=== PATIENT | female | born 1955 | race African-American/Black ===

== ENCOUNTER 2017-07-06 07:31 | Day surgery (SDC) | payer OTHER ==
[2017-06-28 12:43] VITALS: BMI 32.2
[2017-07-06] MEDS ORDERED: oxyCODONE HCL 5 MG TABLET PO PRN ×4 (11:51→15:29)
[2017-07-06] MEDS ORDERED: ONDANSETRON 4 MG/2 ML VIAL IVPUSH PRN (11:51)
[2017-07-06] MEDS ORDERED: MIDAZOLAM HCL 2 MG/2 ML SINGLE DOSE VIAL ONE ×2 (11:55→12:41)
[2017-07-06] MEDS ORDERED: DEXAMETHASONE SOD PHOSPHATE/PF 10 MG/ML SDV ONE (11:55)
[2017-07-06] MEDS ORDERED: LACTATED RINGERS SOLUTION 1,000 ML IV SCH (12:00)
[2017-07-06] MEDS ORDERED: LIDOCAINE HCL/PF 2% SDV 5ML VIAL ONE ×2 (12:43→12:47)
[2017-07-06] MEDS ORDERED: DEXAMETHASONE SOD PHOSPHATE 4 MG/1 ML VIAL ONE ×2 (12:47→13:23)
[2017-07-06] MEDS ORDERED: ONDANSETRON 4 MG/2 ML VIAL ONE ×2 (12:47→13:23)
[2017-07-06] MEDS ORDERED: KETOROLAC TROMETHAMINE 30 MG/1 ML VIAL ONE ×2 (12:47→13:23)
[2017-07-06] MEDS ORDERED: PROPOFOL 20 ML ONE ×2 (13:12→13:41)
[2017-07-06] MEDS ORDERED: ceFAZolin SODIUM 1 GM VIAL ONE (13:25)
[2017-07-06] MEDS ORDERED: SODIUM CHLORIDE 0.9% P/F 10 ML VIAL IJ ONE (13:25)
[2017-07-06] MEDS ORDERED: METOPROLOL TARTRATE 5 MG/5 ML VIAL ONE (13:32)
[2017-07-06] MEDS ORDERED: ACETAMINOPHEN 325 MG TABLET (FP) PO PRN ×2 (15:28→15:29)
--- NOTE | 2017-07-06 20:31 | OP ---
DATE OF OPERATION: 07/06/2017 PREOPERATIVE DIAGNOSIS: Impingement, right shoulder rotator cuff tear. POSTOPERATIVE DIAGNOSIS: Impingement from the lateral clavicle, including the articular surface, impingement from the coracoacromial ligament, impingement from the lateral acromion, joint debris and hypertrophic synovium within the joint, hypertrophic bursal tissue with tearing of the rotator cuff and tearing of the glenoid labrum. PROCEDURE PERFORMED: Shoulder decompression of subacromial space with partial acromioplasty with release and resection of coracoacromial ligament, lysis and resection of adhesions, distal claviculectomy including distal articular surface , partial synovectomy with extensive debridement of inflamed bursal tissue, joint debridement, and debridement of partial-thickness rotator cuff tear with partial glenoid labral resection. SURGEON: Jae Whiteside MD CUSTOMER STRATEGY MANAGER: ANISH Salter ANESTHESIA: Scot Buchanan MD. Regional anesthesia was performed. PROCEDURE: The procedure consisted of the patient being brought into the operating room and gently transferred from the stretcher to the OR table with all bony prominences well padded. The right shoulder was prepared and draped in a sterile fashion. The patient was given intravenous antibiotics and copious irrigation throughout the procedure to minimize the risk for infection. A complete risks and benefits discussion was conducted. An appropriate timeout was conducted with a timeout discussion following sterile preparation and draping of the right shoulder. Gentle traction using a traction device, approximately 8 pounds, was applied across the shoulder joint. Anterior, posterior, and lateral portals were used. It should be noted that prior to the surgical initiation, the patient met, was placed in the [id number] lateral decubitus position with all bony prominences well padded. Great care was taken to protect the face as well as a pillow below the legs and a pillow between the legs to protect the peroneal nerves and the neurovascular structures to the legs. Compressive stockings and Venodynes were used to provide protection for the leg. Following sterile preparation and draping of the right shoulder, anterior and posterolateral portals were used to introduce the arthroscope and arthroscopic instruments. The glenohumeral joint was evaluated. There was noted to be inflamed synovium and hence, a partial synovectomy was performed. Anterior and posterior recesses without loose body. Middle glenohumeral ligament was found to be intact. Biceps tendon was found to be intact. There was noted to be tearing of the glenoid labrum, and partial glenoid labral resection was performed. Rotator cuff on the articular side was found to have a tear which was probed and found to be partial thickness, and this was debrided using shaver and radiofrequency wand. There was noted to be joint debris in the glenohumeral joint and joint debridement was performed. Our attention was then turned to the subacromial space. Inflamed bursal tissue was identified and an extensive partial bursectomy was performed. The inferior acromion was noted to have an edge of bone impinging upon the rotator cuff and this was debrided. A high-speed cj and shaver were used to resect a wedge of bone taken anteriorly, then posteriorly. The coracoacromial ligament was also creating impingement and this was released and resected. The lateral clavicle, including the articular portion, was also creating impingement. This was debrided and a high- speed cj and shaver were used to resect the lateral clavicle, including the articular portion creating impingement. The shoulder joint was then copiously irrigated with sterile saline irrigant. The wounds were closed with 4-0 undyed Vicryl. We applied Steri-Strips, Xeroform, 4 x 4's, combined Elastoplast and shoulder immobilizer. The patient was then gently awakened from anesthesia without incident and transferred from the operating room to the recovery room in satisfactory condition. There were no intraoperative complications. JAE WHITESIDE M.D. [id number] MTDD
[2017-07-07 06:36] VITALS: BP 139/70; PULSE 84; TEMP 97.5
--- NOTE | 2017-07-11 10:21 | PATH ---
Surgical Pathology Report Patient Name: ALVINO MAJOR [facility]. Rec. #: [id number] /Age/Gender: 1955 (Age: 61) / F Account: [id number] Location: [facility] Taken: 07/06/2017 Received: 07/09/2017 Reported: 07/11/2017 Physicians: Srinivas Whiteside M.D. Specimen(s) Received RIGHT SHOULDER SHAVINGS Clinical History Right shoulder rotator cuff tear Final Diagnosis SHOULDER SHAVINGS, RIGHT, ARTHROSCOPY: FRAGMENTS OF BENIGN CARTILAGE, DENSE FIBROCONNECTIVE TISSUE, ADIPOSE TISSUE, AND SKELETAL MUSCLE. Electronically Signed Marcia Kapadia M.D. Gross Description Received in formalin labeled "right shoulder shavings," is a 1.2 x 0.7 x 0.2 cm aggregate of cortez-yellow soft tissue fragments. The formalin is filtered and the specimen is entirely submitted in one cassette. 07/09/201707/09/2017
== END 2017-07-07 10:05 | disposition home or self-care (01) ==
LOC: FASU 07:31 → FM/S 15:29 → FASU 07-07 10:05
PROVIDERS: ATTEND Orthopaedic Surgery
PROC: 0RNJ4ZZ Release Right Shoulder Joint, Percutaneous Endoscopic Approach (ICD-10-PCS; 2017-07-06)
PROC: 0PB94ZZ Excision of Right Clavicle, Percutaneous Endoscopic Approach (ICD-10-PCS; 2017-07-06)
PROC: 0RBJ4ZZ Excision of Right Shoulder Joint, Percutaneous Endoscopic Approach (ICD-10-PCS; 2017-07-06)
PROC: 0LQ14ZZ Repair Right Shoulder Tendon, Percutaneous Endoscopic Approach (ICD-10-PCS; principal; 2017-07-06 13:08)
DX: M75.121 Complete rotator cuff tear or rupture of right shoulder, not specified as traumatic (principal); M75.41 Impingement syndrome of right shoulder; M75.01 Adhesive capsulitis of right shoulder; M67.211 Synovial hypertrophy, not elsewhere classified, right shoulder; M24.111 Other articular cartilage disorders, right shoulder
CPT/HCPCS: 82962; 88304-TC; 94760

== ENCOUNTER 2018-02-25 13:56 | Emergency (ER) | payer OTHER, MEDICARE ==
[2018-02-25 14:15] VITALS: BP 153/74; PULSE 85; TEMP 98; BMI 30.8
--- NOTE | 2018-02-25 14:42 | PDOC ---
History of Present Illness - General Chief Complaint: Injury Stated Complaint: FALL Time Seen by Provider: 02/25/18 14:22 - History of Present Illness Initial Comments: 02/25/18 14:40 62-year-old lady without comorbidities presents for evaluation after fall. She states she was coming out of a store tripped and fell on both breasts. She complains of bilateral wrist pain and right ankle pain. She did not hit her head. There is been no post injury loss of consciousness nausea vomiting or headache no visual changes. Past History - Past Medical History Allergies/Adverse Reactions: Allergies Allergy/AdvReac Type Severity Reaction Status Date / Time No Known Allergies Allergy Verified 02/25/18 14:23 Home Medications: Ambulatory Orders Zolpidem Tartrate [Ambien] 10 mg PO HS 06/28/17 Amlodipine Besylate 10 mg PO DAILY 02/25/18 Atorvastatin Ca [Lipitor] 20 mg NR DAILY 02/25/18 Metformin HCl [Glucophage] 1,000 mg PO BID 02/25/18 Anemia: Yes Asthma: No Cancer: No Cardiac Disorders: No CVA: No COPD: No CHF: No Dementia: No Diabetes: Yes GI Disorders: No Disorders: No HTN: Yes Hypercholesterolemia: No Liver Disease: No Seizures: No Thyroid Disease: No - Surgical History Abdominal Surgery: No Appendectomy: No Cardiac Surgery: No Cholecystectomy: No Lung Surgery: No Neurologic Surgery: No Orthopedic Surgery: Yes (R shoulder arthroscopy) - Immunization History Immunization Up to Date: No - Suicide/Smoking/Psychosocial Hx Smoking History: Never smoked Have you smoked in the past 12 months: No Information on smoking cessation initiated: No Hx Alcohol Use: No Drug/Substance Use Hx: No Substance Use Type: Prescribed Hx Substance Use Treatment: No Review of Systems - Review of Systems Musculoskeletal: Yes: See HPI, Joint Pain *Physical Exam - Vital Signs Last Vital Signs Temp Pulse Resp BP Pulse Ox 98.0 F 85 18 153/74 100 02/25/18 14:12 02/25/18 14:12 02/25/18 14:12 02/25/18 14:12 02/25/18 14:12 - Physical Exam Comments: 02/25/18 14:41 Bilateral wrist skin color and temperature are normal. There is no swelling. There is a small superficial abrasion on the left palm. There is full range of motion of wrist both right and left in all planes. Minimal tenderness about the base of the thumbs. No gross sensorimotor deficit she is neurovascularly intact. Right ankle skin color and temperature are normal there is no swelling. There is no tenderness about the knee proximal fibula or along its distal coarse. No tenderness about the medial lateral malleolus base of the fifth metatarsal or navicular. Negligible tenderness about the ATFL. No gross sensorimotor deficits full range of motion she is neurovascularly intact no evidence of instability. Moderate Sedation - Procedure Monitoring Vital Signs: Procedure Monitoring Vital Signs Temperature 98.0 F 02/25/18 14:12 Pulse Rate 85 02/25/18 14:12 Respiratory Rate 18 02/25/18 14:12 Blood Pressure 153/74 02/25/18 14:12 O2 Sat by Pulse Oximetry (%) 100 02/25/18 14:12 ED Treatment Course - RADIOLOGY Radiology Studies Ordered: Category Date Time Status WRIST W/HAND-LEFT* [RAD] Stat Radiology 02/25/18 14:36 Ordered WRIST W/HAND-RIGHT* [RAD] Stat Radiology 02/25/18 14:36 Ordered Medical Decision Making - Medical Decision Making 02/25/18 15:10 X-ray show no evidence of fracture trauma or destructive process to does appear to be radial opacity at the palmar surface of the left hand. *DC/Admit/Observation/Transfer Diagnosis at time of Disposition: Sprain of wrist, left, Right wrist sprain, Right ankle sprain - Discharge Dispostion Disposition: HOME Condition at time of disposition: Stable - Referrals Referrals: Janeth Galeana MD [Primary Care Provider] - Bossman Combs MD [Staff Physician] - Ramon Lam MD [Staff Physician] - - Patient Instructions Printed Discharge Instructions: Ankle Sprain, DI for Ankle Sprain, Wrist Sprain , DI for Wrist Sprain Additional Instructions: He may weight-bear as tolerated with the use of the Aircast on your right ankle. He may remove it for hygiene and sleep. Please wear the wrist splint while you're out of the house and he may remove them for gentle range of motion sleep hygiene as well. Return to the emergency room should have any further issues follow-up with hand surgery as well as orthopedic surgery for further evaluation and treatment options. Orthopedic surgery fear ankle and hand surgery for your wrist sprains. There is an indication on your x-ray today of a foreign body in your left palm. I will have you follow-up with hand surgery for further evaluation and treatment of this as well. - Post Discharge Activity
== END 2018-02-25 15:51 | disposition home or self-care (01) ==
LOC: JERFT 13:56
PROC: 2W3DX1Z Immobilization of Left Lower Arm using Splint (ICD-10-PCS; principal; 2018-02-25)
PROC: 2W3QX1Z Immobilization of Right Lower Leg using Splint (ICD-10-PCS; 2018-02-25)
DX: S63.501A Unspecified sprain of right wrist, initial encounter (principal); S63.502A Unspecified sprain of left wrist, initial encounter; S93.401A Sprain of unspecified ligament of right ankle, initial encounter; W01.0XXA Fall on same level from slipping, tripping and stumbling without subsequent striking against object, initial encounter; Y93.89 Activity, other specified; Y92.512 Supermarket, store or market as the place of occurrence of the external cause; Y99.8 Other external cause status
CPT/HCPCS: 73110-TC-LR-FY; 73110-TC-RT-FY; 73130-TC-LT-FY; 73130-TC-RT-FY; 99281-25

== ENCOUNTER 2020-06-23 06:48 | Day surgery (SDC) | payer OTHER, MEDICARE ==
[2020-06-23] MEDS ORDERED: FERRIC CARBOXYMALTOSE 750 MG in SODIUM CHLORIDE 250 ML IVPB ONE (11:51)
[2020-06-23 17:57] VITALS: PULSE 87; TEMP 98
[2020-06-23 17:59] VITALS: BP 123/54
== END 2020-06-23 13:35 | disposition home or self-care (01) ==
LOC: JONCNONCHE 06:48
PROVIDERS: ATTEND Internal Medicine Hematology & Oncology
PROC: 3E033GC Introduction of Other Therapeutic Substance into Peripheral Vein, Percutaneous Approach (ICD-10-PCS; principal; 2020-06-23)
DX: D50.9 Iron deficiency anemia, unspecified (principal)
CPT/HCPCS: 96365; J1439

== ENCOUNTER 2020-07-01 07:28 | Day surgery (SDC) | payer OTHER, MEDICARE ==
[2020-07-01] MEDS ORDERED: FERRIC CARBOXYMALTOSE 750 MG in SODIUM CHLORIDE 250 ML IVPB ONE (12:00)
[2020-07-01 15:45] VITALS: TEMP 98.3
[2020-07-01 15:46] VITALS: BP 111/56; PULSE 94
== END 2020-07-01 14:45 | disposition home or self-care (01) ==
LOC: JONCCHEMO 07:28
PROVIDERS: ATTEND Internal Medicine Hematology & Oncology
PROC: 3E033GC Introduction of Other Therapeutic Substance into Peripheral Vein, Percutaneous Approach (ICD-10-PCS; principal; 2020-07-01)
DX: D50.9 Iron deficiency anemia, unspecified (principal)
CPT/HCPCS: 96365; J1439

== ENCOUNTER 2020-10-28 15:33 | Emergency (ER) | payer OTHER, MEDICARE ==
[2020-10-28 16:11] VITALS: TEMP 98.8; BMI 32.1
[2020-10-28 18:00] LABS: BASO % 0.4 % (0-2.0); HEMATOCRIT 33.4 % (32.4-45.2); HEMOGLOBIN 11.4 GM/dL (10.7-15.3); MCH 30.2 pg (25.7-33.7); MCHC 34.3 g/dl (32.0-36.0); MEAN CELL VOLUME 88.2 fl (80-96); MEAN PLT VOLUME 7.1 fl (7.5-11.1); MONO % 2.9 % (3.8-10.2); NEUT % 91.7 % (42.8-82.8); PLATELET COUNT 353 10^3/uL (134-434); RBC 3.79 M/mm3 (3.60-5.2); RDW 14.2 % (11.6-15.6); WHITE BLOOD COUNT 11.4 K/mm3 (4.0-10.0)
[2020-10-28 18:15] LABS: CALCIUM 9.1 mg/dL (8.5-10.1)
[2020-10-28 18:16] LABS: ALBUMIN 3.8 g/dl (3.4-5.0); BLOOD UREA NITROGEN 21.3 mg/dL (7-18)
[2020-10-28 18:18] LABS: CREATININE 1.9 mg/dL (0.55-1.3)
[2020-10-28 18:20] LABS: BILIRUBIN,TOTAL 0.4 mg/dL (0.2-1); TOT PROT 8.3 g/dl (6.4-8.2)
[2020-10-28 19:08] LABS: ANISOCYTOSIS 0; MACROCYTOSIS 0; PLATELET ESTIMATE NORMAL
[2020-10-28 19:30] VITALS: BP 137/77; PULSE 90
== END 2020-10-28 19:00 | disposition home or self-care (01) ==
LOC: JER 15:33
DX: R14.1 Gas pain (principal)
CPT/HCPCS: 36415; 74019-TC-FY; 80053; 83690; 85025; 99284-25

== ENCOUNTER → 2021-01-19 | Day surgery (SDC) | payer OTHER, MEDICARE ==
[~2021-01-19] MED LIST: FERRIC CARBOXYMALTOSE 750 MG in SODIUM CHLORIDE 250 ML IVPB ONE
[2021-01-19 10:52] LABS: BASO % 0.7 % (0-2.0); EOS % 1.8 % (0-4.5); HEMATOCRIT 32.2 % (32.4-45.2); HEMOGLOBIN 11.1 GM/dL (10.7-15.3); LYMPH % 29.9 % (8-40); MCH 29.6 pg (25.7-33.7); MCHC 34.5 g/dl (32.0-36.0); MONO % 8.5 % (3.8-10.2); NEUT % 59.1 % (42.8-82.8); PLATELET COUNT 355 10^3/uL (134-434); RBC 3.75 M/mm3 (3.60-5.2); RDW 14.5 % (11.6-15.6); WHITE BLOOD COUNT 5.9 K/mm3 (4.0-10.0)
[2021-01-19 11:20] LABS: CALCIUM 9.2 mg/dL (8.5-10.1)
[2021-01-19 11:21] LABS: ALBUMIN 3.6 g/dl (3.4-5.0)
[2021-01-19 11:24] LABS: CREATININE 1.8 mg/dL (0.55-1.3)
[2021-01-19 11:25] LABS: BILIRUBIN,TOTAL 0.9 mg/dL (0.2-1); TOT PROT 7.9 g/dl (6.4-8.2)
== END | disposition home or self-care (01) ==
LOC: JONCCHEMO 07:41
PROVIDERS: ATTEND Internal Medicine Hematology & Oncology
DX: Z53.8 Procedure and treatment not carried out for other reasons (principal)
CPT/HCPCS: 36415; 80053; 82607; 82728; 82746; 83540; 83550; 85025; 96365

== ENCOUNTER → 2021-09-20 | Day surgery (SDC) | payer OTHER, MEDICARE | END | disposition home or self-care (01) | LOC: JRADIR 10:37 | PROVIDERS: ATTEND Internal Medicine Endocrinology, Diabetes & Metabolism | PROC: 0G9G3ZX Drainage of Left Thyroid Gland Lobe, Percutaneous Approach, Diagnostic (ICD-10-PCS; principal; 2021-09-20) | DX: E04.1 Nontoxic single thyroid nodule (principal) | CPT/HCPCS: 10005; 76942; 88173; 88305-TC ==